=== PATIENT | female | born 2000 | race Caucasian/White ===

== ENCOUNTER → 2023-11-13 15:44 | Outpatient (REF) | payer BC, SELFPAY | LOC: MRI 3T 15:44 | PROVIDERS: ATTENDING PHYSICIAN Internal Medicine; FAMILY PHYSICIAN Physician Assistant Medical | DX: K50.80 Crohn's disease of both small and large intestine without complications (principal) | CPT/HCPCS: 72197; 74183; A9575 ==

== ENCOUNTER → 2024-02-11 16:45 | Outpatient (REF) | payer BC, SELFPAY | LOC: HWRAD 16:45 | PROVIDERS: ATTENDING PHYSICIAN Student in an Organized Health Care Education/Training Program | DX: R05.9 Cough, unspecified (principal) | CPT/HCPCS: 71046 ==

== ENCOUNTER → 2024-03-06 06:32 | Day surgery (SDC) | payer BC, SELFPAY ==
[2024-03-06 08:03] LABS: Glucose - Point of Care 83 mg/dl (70-99)
== END ==
LOC: GI 06:32
PROVIDERS: ATTENDING PHYSICIAN Internal Medicine
DX: Z12.11 Encounter for screening for malignant neoplasm of colon (principal); K50.10 Crohn's disease of large intestine without complications; K52.9 Noninfective gastroenteritis and colitis, unspecified; K63.89 Other specified diseases of intestine; K64.4 Residual hemorrhoidal skin tags; Z98.890 Other specified postprocedural states
CPT/HCPCS: 45380; 88305; 82962

== ENCOUNTER → 2024-07-24 10:15 | Outpatient (REF) | payer BC, SELFPAY | LOC: DHSLP 10:15 | PROVIDERS: ATTENDING PHYSICIAN Physician Assistant Medical | DX: G47.30 Sleep apnea, unspecified (principal); R06.83 Snoring | CPT/HCPCS: 95810 ==